=== PATIENT | male | born 1960 | race Hispanic/Latino ===

== ENCOUNTER 2019-01-22 11:07 | Emergency (ER) | payer SELFPAY ==
[2019-01-22 11:30] LABS: #Lymphocytes 1.9 thou/uL (1.20-3.40); #Monocytes 0.6 thou/uL (0.11-0.59); #Neutrophils 5.8 thou/uL (1.40-6.50); %Basophils 0.3 % (0.0-1.0); %Eosinophils 0.4 % (0.0-10.0); %Lymphocytes 22.9 % (21.0-51.0); %Monocytes 6.8 % (0.0-10.0); %Neutrophils 69.6 % (42.0-75.0); Hemoglobin 12.9 g/dL (14.0-18.0); Mean Corpuscular HGB CONC 35.1 g/dL (32.0-36.0); Mean Corpuscular Hemoglobin 31.5 pg (27.0-31.0); Mean Corpuscular Volume 89.8 fL (78.0-98.0); Platelet Count 212 thou/uL (130-400); RBC Distribution Width 11.9 % (11.5-14.5); Red Blood Cell (RBC) Count 4.11 mill/uL (4.70-6.10); White Blood Cell (WBC) Count 8.3 thou/uL (4.8-10.8)
--- NOTE | 2019-01-22 11:47 | CT ---
EXAM: Brain CTWithout contrast: HISTORY: Injury from trauma COMPARISON: None FINDINGS: No focal mass or midline shift. No intra or extra-axial hemorrhage. Sinuses and mastoids are clear of acute process. IMPRESSION: No mass or bleed or other significant acute intracranial process.
[2019-01-22 11:53] LABS: Acetaminophen Less than 6.0 mcg/mL (10.0-30.0); Alcohol Less than 10 mg/dL (Less than 10); Salicylate Less than 8.0 mg/dL (15.0-30.0)
[2019-01-22 11:54] LABS: ALT (SGPT) 21 U/L (8-55); AST (SGOT) 25 U/L (5-34); Albumin 4.2 g/dL (3.5-5.0); Alkaline Phosphatase 59 U/L (40-150); Anion Gap 14 mmol/L (10-20); BUN (Urea Nitrogen) 13 mg/dL (8.4-25.7); Bilirubin, Total 0.6 mg/dL (0.2-1.2); Calc. Creatinine Clearance 0 mL/min (70-130); Calcium 10.2 mg/dL (7.8-10.44); Carbon Dioxide 22 mmol/L (22-29); Chloride 104 mmol/L (98-107); Estimated GFR-MDRD Greater than 90; Globulin 3.4 g/dL (2.4-3.5); Glucose 112 mg/dL (70-105); Potassium 3.8 mmol/L (3.5-5.1); Protein, Total 7.6 g/dL (6.0-8.3); Sodium 136 mmol/L (136-145)
[2019-01-22] MEDS ORDERED: ISOVUE-370 76%-LOCM 1 ML ONE (11:54)
--- NOTE | 2019-01-22 11:56 | CT ---
EXAM: Chest abdomen and pelvic CT scanwith IV contrast: Thoracic spine CT scanwith IV contrast: Lumbar spine CT scanwith IV contrast: HISTORY: Injury from trauma COMPARISON: None FINDINGS: Chest abdomen and pelvis CT: No pneumothorax or pleural effusion or pericardial effusion. No mediastinal hematoma. The aorta appears unremarkable No significant acute pulmonary parenchymal process. Nondisplaced fracture of the right second posterior rib. 3 vessel coronary artery calcific disease. Liver:Unremarkable Gallbladder:Unremarkable Pancreas:Unremarkable Spleen:Unremarkable Kidneys:Unremarkable No intraperitoneal fluid or retroperitoneal hematoma. No evidence for acute fracture or dislocation. IMPRESSION: No evidence for acute posttraumatic process involving the chest, abdomen, and pelvis. Thoracic spine CT: IMPRESSION: No evidence for fracture, dislocation, or other significant acute process. Generalized spondylosis. Lumbar spine CT: No evidence for fracture, dislocation, or other significant acute process. Generalized spondylosis. Findings in regards to the brain CT as well as chest abdomen and pelvic CT discussed with Dr. Brooks in the ER at 11:50 AM CODE CR
--- NOTE | 2019-01-22 12:09 | CT ---
CT CERVICAL SPINE: DATE: 01/22/2019. PROVIDED CLINICAL HISTORY: Trauma. FINDINGS: There is a fracture involving the medial-most aspects of the left 1st rib. This is nondisplaced. The re is no evidence for a fracture involving the cervical spine. Cervical alignment appears normal. C ervical degenerative changes are seen. No prevertebral soft tissue swelling apparent. Stranding and density alteration likely reflecting contusion involving the subcutaneous adipose layer of the poste rior aspects of the neck slightly left of midline. The visualized lung apices appear clear. IMPRESSION: 1. No evidence for fracture or traumatic subluxation involving the cervical spine. 2. Nondisplaced medial left 1st rib fracture. POS: [facility]
[2019-01-22] MEDS ORDERED: Morphine 4 MG/ML VIAL ONE (12:33)
--- NOTE | 2019-01-22 12:35 | RAD ---
Exam: Left knee 4 views: HISTORY: Injury from trauma FINDINGS: Essentially nondisplaced comminuted fracture proximal fibula. Left knee degenerative change. IMPRESSION: Slightly comminuted nondisplaced fracture proximal fibula.
[2019-01-22] MEDS ORDERED: Nitroglycerin 2% Ointment 1 INCH/1 GM Packet ONE (15:38)
[2019-01-22] MEDS ORDERED: Ketorolac Tromethamine 60 MG/2 ML VIAL ONE (15:38)
[2019-01-22] MEDS ORDERED: Aspirin Chewable 81 MG TAB ONE (16:34)
== END 2019-01-22 17:20 | disposition left against medical advice (07) ==
LOC: ERS 11:07
DX: S22.32XA Fracture of one rib, left side, initial encounter for closed fracture (principal); S82.832A Other fracture of upper and lower end of left fibula, initial encounter for closed fracture; S09.90XA Unspecified injury of head, initial encounter; E11.9 Type 2 diabetes mellitus without complications; F17.210 Nicotine dependence, cigarettes, uncomplicated; Z79.84 Long term (current) use of oral hypoglycemic drugs; V04.90XA Pedestrian on foot injured in collision with heavy transport vehicle or bus, unspecified whether traffic or nontraffic accident, initial encounter
CPT/HCPCS: 29505; 36415; 70450; 71260; 72125; 74177; 80053; 80307; 84484; 85025; 86850; 86900; 86901; 93005; 96361; 96374; 96375; G0390; J1885; J2270; Q9966